=== PATIENT | male | born 1980 | race African-American/Black ===

== ENCOUNTER 2023-07-31 13:22 | Emergency (ER) | payer SELFPAY ==
[~2023-07-31 13:22] MED LIST: Iopamidol 370 76% 100 ML VIAL ONE
[2023-07-31] MEDS ORDERED: Acetaminophen 500 MG TAB ONE (13:57)
[2023-07-31 14:10] LABS: Bilirubin Negative (Negative); Blood, Urine Negative (Negative); Clarity Clear (Clear); Glucose, Urine (Dipstick) >=1000 mg/dL (Negative); Ketone, Urine 15 mg/dL (Negative); Leukocyte Negative (Negative); Nitrite Negative (Negative); Protein, Urine (Dipstick) Negative (Neg-Trace); Specific Gravity, Urine 1.015 (1.005-1.030); pH, Urine 6.5 (5.0-9.0)
[2023-07-31 14:15] LABS: Bacteria/HPF None Seen HPF (None Seen); CAUTI Indications for Culture Pelvic or flank pain; RBC/HPF None Seen HPF (0-3); Squamous Epithelial 0-3 HPF (0-3); WBC/HPF None Seen HPF (0-3)
[2023-07-31 14:16] LABS: Urine Culture Reflex No No
[2023-07-31 14:20] LABS: ALT (SGPT) 11 U/L (8-55); AST (SGOT) 11 U/L (5-34); Albumin 3.9 g/dL (3.5-5.0); Alkaline Phosphatase 81 U/L (40-110); Anion Gap 14 mmol/L (10-20); BUN (Urea Nitrogen) 8 mg/dL (8.9-20.6); Bilirubin, Total 0.3 mg/dL (0.2-1.2); Calc. Creatinine Clearance 0 mL/min (70-130); Calcium 9.7 mg/dL (7.8-10.44); Carbon Dioxide 24 mmol/L (22-29); Chloride 99 mmol/L (98-107); Estimated GFR 88; Glucose 371 mg/dL (70-105); Potassium 4.2 mmol/L (3.5-5.1); Protein, Total 7.9 g/dL (6.0-8.3); Sodium 133 mmol/L (136-145)
[2023-07-31 14:22] LABS: #Basophils 0.1 thou/uL (0.0-0.2); #Eosinphils 0.2 thou/uL (0.0-0.7); #Lymphocytes 2.8 thou/uL (1.20-3.40); #Monocytes 0.4 thou/uL (0.11-0.59); #Neutrophils 5.4 thou/uL (1.40-6.50); %Eosinophils 1.9 % (0.0-10.0); %Lymphocytes 31.5 % (21.0-51.0); %Monocytes 4.2 % (0.0-10.0); %Neutrophils 61.4 % (42.0-75.0); Hematocrit 37.7 % (42.0-52.0); Hemoglobin 12.3 g/dL (14.0-18.0); Mean Corpuscular HGB CONC 32.6 g/dL (32.0-36.0); Mean Corpuscular Hemoglobin 25.5 pg (27.0-31.0); Mean Corpuscular Volume 78.3 fl (78.0-98.0); Mean Platelet Volume 7.9 fL (7.4-10.4); Platelet Count 256 10x3/uL (130-400); RBC Distribution Width 11.2 % (11.5-14.5); Red Blood Cell (RBC) Count 4.81 mill/uL (4.70-6.10); White Blood Cell (WBC) Count 8.8 10x3/uL (4.8-10.8)
[2023-07-31] MEDS ORDERED: Lidocaine 1% (PF) 30 ML VIAL ONE (16:08)
[2023-07-31] MEDS ORDERED: Doxycycline 100 MG CAP ONE (17:00)
== END 2023-07-31 17:02 ==
LOC: NAV ERS 13:22
DX: L02.214 Cutaneous abscess of groin (principal); E11.9 Type 2 diabetes mellitus without complications; Z55.6 Problems related to health literacy
CPT/HCPCS: 10060; 74177; 80053; 81001; 85025; 87070; 87205; J2001; Q9967

== ENCOUNTER 2023-08-04 13:42 | Emergency (ER) | payer OTHER, SELFPAY ==
[2023-08-04] MEDS ORDERED: Sulfameth/Trimethoprim DS 800-160mg TAB ONE (14:07)
== END 2023-08-04 14:15 ==
LOC: NAV ERS 13:42
DX: L02.214 Cutaneous abscess of groin (principal); E11.9 Type 2 diabetes mellitus without complications; I10 Essential (primary) hypertension; Z79.84 Long term (current) use of oral hypoglycemic drugs
CPT/HCPCS: 36416; 99283